=== PATIENT | male | born 2000 | race Hispanic/Latino ===

== ENCOUNTER 2023-10-30 13:54 | Inpatient (IN) | payer MEDICAID, OTHER ==
[~2023-10-30] VITALS: Ht 172.7 cm; Wt 149.1 kg
[2023-10-30 14:55] LABS: BASOPHILS # (AUTO) 0.04 K/uL (0.00-0.20); BASOPHILS % (AUTO) 0.4 % (0.0-5.0); HEMATOCRIT 45.8 % (42-54); IMMATURE GRANULOCYTE ABSOLUTE 0.07 K/uL (0-1); LYMPHOCYTES # (AUTO) 1.1 K/uL (1.0-4.8); MEAN CORPUSCULAR HGB CONC 33.8 g/dL (32.0-36.0); MEAN CORPUSCULAR VOLUME 73.9 fL (79-99); MONOCYTES # (AUTO) 0.5 K/uL (0.1-1.0); MONOCYTES % (AUTO) 4.6 % (3.0-13.0); NEUTROPHILS # (AUTO) 8.4 K/uL (1.8-7.7); NEUTROPHILS % (AUTO) 83.3 % (40.0-77.0); PLATELET COUNT (AUTO) 184 K/uL (130-400); RED CELL DISTRIBUTION WIDTH 13.1 % (11.0-15.5); WHITE BLOOD COUNT (AUTO) 10.1 K/uL (4.8-10.8)
[2023-10-30 15:08] LABS: RAPID GROUP A STREP negative (NEGATIVE)
[2023-10-30 15:10] LABS: SARS-CoV-2, RNA, NAAT NEGATIVE SARS CoV-2 (NEGATIVE)
[2023-10-30 15:14] LABS: INFLUENZA TYPE A Negative For Type A (NEGATIVE); INFLUENZA TYPE B Negative For Type B (NEGATIVE)
[2023-10-30] MEDS: 0.9%NACL 1000ML 2,052 ML IV ONE (15:15)
[2023-10-30 15:20] LABS: APPEARANCE,URINE CLEAR (CLEAR); BILIRUBIN,URINE 2 mg/dL (NEGATIVE); COLOR,URINE DARK-YELLOW (YELLOW); GLUCOSE, URINE (UA) 30 mg/dL (NEGATIVE); KETONES,URINE 10 mg/dL (NEGATIVE); LEUKOCYTE ESTERASE ,URINE NEGATIVE Leu/uL (NEGATIVE); NITRATE,URINE NEGATIVE (NEGATIVE); PH,URINE 6.5 (5.0-8.0); PROTEIN,URINE 100 mg/dL (NEGATIVE); UROBILINOGEN,URINE 12 mg/dL (0.2-1.0)
[2023-10-30 15:23] LABS: ALBUMIN 3.3 g/dL (3.5-5.0); BILIRUBIN,TOTAL 3.6 mg/dL (0.2-1.0); CREATININE 1.2 mg/dL (0.5-1.3); TOTAL PROTEIN, SERUM 8.6 g/dL (6.0-8.3)
[2023-10-30 15:26] LABS: POTASSIUM 2.9 mmol/L (3.5-5.1)
[2023-10-30 15:27] LABS: ADD UA MICROSCOPIC YES
[2023-10-30 15:41] LABS: BACTERIA,URINE RARE /HPF (None Seen); MUCUS,URINE RARE LPF (None Seen); SQUAMOUS EPITHELIAL CELL,UR RARE /HPF (0-2)
[2023-10-30] MEDS: POTASSIUM BICARB/CIT AC 25 MEQ TABLET.EFF PO ONE (16:13)
[2023-10-30] MEDS: CEFTRIAXONE 1G VIAL IVPB ONE (16:13)
[2023-10-30] MEDS ORDERED: POTASSIUM CHLORIDE 20MEQ/100ML 100 ML IV PRN ×2 (16:30)
[2023-10-30] MEDS ORDERED: MAGNESIUM 2GM PREMIX 50ML 50 ML IV PRN (16:30)
[2023-10-30] MEDS ORDERED: DEXTROSE 50%-WATER 50 ML DISP.SYRIN IV PRN (16:30)
[2023-10-30] MEDS ORDERED: POLYETHYLENE GLYCOL 3350 17 GM POWD.PACK PO PRN (16:30)
[2023-10-30] MEDS ORDERED: POTASSIUM CHLORIDE 10% ELIXIR 20 MEQ/15 ML UDCUP PO PRN (16:30)
[2023-10-30] MEDS ORDERED: DOCUSATE SODIUM 100 MG CAP PO PRN (16:30)
[2023-10-30] MEDS ORDERED: GLUCAGON 1MG KIT 1 MG ML IM PRN (16:30)
[2023-10-30] MEDS: INSULIN HUMULIN R 100 UNIT/ML 3ML SQ SCH (16:30)
[2023-10-30] MEDS: KETOROLAC 15MG/ML VIAL (15MG/ML) IV ONE (16:49)
[2023-10-30] MEDS: DOXYCYCLINE 100MG+NS 250ML 250 ML IV SCH (16:49)
[2023-10-30] MEDS: CEFTRIAXONE 2GM VIAL IVPB SCH (16:51)
[2023-10-30] MEDS ORDERED: HYDRALAZINE 20MG/ML VIAL IV PRN (17:00)
[2023-10-30] MEDS: 0.9%NACL 1000ML 1,000 ML IV SCH (17:40)
[2023-10-30 17:51] LABS: AMYLASE 90 U/L (25-115)
[2023-10-30] MEDS: SODIUM CHLORIDE 3% FOR INHALATION 4 ML/AMP VIAL.NEB IH ONE ×3 (17:58→23:12)
[2023-10-30] MEDS ORDERED: MORPHINE 5 MG/ML VIAL (5MG OR GREATER DOSE) IM PRN (18:00)
[2023-10-30] MEDS: FAMOTIDINE 20MG TAB PO SCH (20:43)
[2023-10-30 20:53] LABS: ACETAMINOPHEN < 1 mcg/mL (10-29); SALICYLATE < 2.8 mg/dL (2.8-20.0)
[2023-10-30 21:35] VITALS: O2SAT 98
[2023-10-30 21:49] VITALS: BP 120/56; PULSE 121; RESP 18
[2023-10-30 23:07] VITALS: BP 146/66; PULSE 121; RESP 18
[2023-10-30] MEDS: IBUPROFEN 600 MG TABLET PO PRN (23:08)
[2023-10-31] VITALS (9 sets, daily range): BP systolic 110–150; BP diastolic 50–77; PULSE 108–129; RESP 16–20; O2SAT 96–100
[2023-10-31 03:39] LABS: BASOPHILS # (AUTO) 0.02 K/uL (0.00-0.20); BASOPHILS % (AUTO) 0.2 % (0.0-5.0); EOSINOPHILS # (AUTO) 0.01 K/uL (0.00-0.70); EOSINOPHILS % (AUTO) 0.1 % (0.0-8.0); IMMATURE GRANULOCYTE ABSOLUTE 0.07 K/uL (0-1); LYMPHOCYTES # (AUTO) 1.4 K/uL (1.0-4.8); LYMPHOCYTES % (AUTO) 16.9 % (21.0-51.0); MEAN CORPUSCULAR HEMOGLOBIN 24.7 pg (27.0-33.0); MEAN CORPUSCULAR HGB CONC 33.5 g/dL (32.0-36.0); MEAN CORPUSCULAR VOLUME 73.7 fL (79-99); MONOCYTES # (AUTO) 0.7 K/uL (0.1-1.0); MONOCYTES % (AUTO) 7.7 % (3.0-13.0); NEUTROPHILS # (AUTO) 6.3 K/uL (1.8-7.7); NEUTROPHILS % (AUTO) 74.3 % (40.0-77.0); PLATELET COUNT (AUTO) 158 K/uL (130-400); RED BLOOD CELL COUNT(AUTO) 5.02 MIL/uL (4.50-6.20); RED CELL DISTRIBUTION WIDTH 13.2 % (11.0-15.5); WHITE BLOOD COUNT (AUTO) 8.5 K/uL (4.8-10.8)
[2023-10-31 03:48] LABS: CREATININE 1.1 mg/dL (0.5-1.3); POTASSIUM 3.3 mmol/L (3.5-5.1)
[2023-10-31 03:54] LABS: HEMOGLOBIN A1C 5.3 % (4.0-6.0)
[2023-10-31 04:01] LABS: ALBUMIN 2.6 g/dL (3.5-5.0); THYROID STIMULATING HORMONE 2.17 uIU/mL (0.36-3.74); TOTAL PROTEIN, SERUM 6.7 g/dL (6.0-8.3)
[2023-10-31] MEDS: KCL 20 MEQ ERTAB PO PRN (04:16)
[2023-10-31] MEDS: SODIUM CHLORIDE 3% FOR INHALATION 4 ML/AMP VIAL.NEB IH ONE (06:31)
[2023-10-31] MEDS: ENOXAPARIN SODIUM 80 MG/0.8 ML SQ SCH (08:55)
[2023-10-31] MEDS: LACTATED RINGERS 1000ML IV ONE (11:27)
[2023-11-01] VITALS (9 sets, daily range): BP systolic 118–140; BP diastolic 49–79; PULSE 80–118; RESP 18–22; TEMP 100.3; O2SAT 99
[2023-11-01 03:43] LABS: BASOPHILS # (AUTO) 0.03 K/uL (0.00-0.20); BASOPHILS % (AUTO) 0.5 % (0.0-5.0); EOSINOPHILS # (AUTO) 0.01 K/uL (0.00-0.70); EOSINOPHILS % (AUTO) 0.2 % (0.0-8.0); HEMATOCRIT 34.3 % (42-54); IMMATURE GRANULOCYTE ABSOLUTE 0.07 K/uL (0-1); LYMPHOCYTES # (AUTO) 1.6 K/uL (1.0-4.8); LYMPHOCYTES % (AUTO) 25.6 % (21.0-51.0); MEAN CORPUSCULAR HEMOGLOBIN 24.4 pg (27.0-33.0); MEAN CORPUSCULAR HGB CONC 33.2 g/dL (32.0-36.0); MEAN CORPUSCULAR VOLUME 73.4 fL (79-99); MONOCYTES # (AUTO) 0.6 K/uL (0.1-1.0); MONOCYTES % (AUTO) 8.8 % (3.0-13.0); NEUTROPHILS % (AUTO) 63.8 % (40.0-77.0); PLATELET COUNT (AUTO) 173 K/uL (130-400); RED BLOOD CELL COUNT(AUTO) 4.67 MIL/uL (4.50-6.20); RED CELL DISTRIBUTION WIDTH 13.4 % (11.0-15.5); WHITE BLOOD COUNT (AUTO) 6.2 K/uL (4.8-10.8)
[2023-11-01 04:43] LABS: BASOPHILS % (MANUAL) 1 % (0-2); LYMPHOCYTES % (MANUAL) 13 % (22-44); MAN.DIFF COMMENT-IMPRESSION MANUAL DIFFERENTIAL; MONOCYTES % (MANUAL) 8 % (2-9); SEGMENTED NEUTROPHILS % 78 % (40-70); TOTAL CELLS COUNTED 100; WBC MORPHOLOGY SLIDE REVIEWED
[2023-11-01 04:44] LABS: PLATELET MORPHOLOGY COMMENT ADEQUATE
[2023-11-01 05:14] LABS: CREATININE 0.9 mg/dL (0.5-1.3); POTASSIUM 3.4 mmol/L (3.5-5.1)
[2023-11-01 07:30] LABS: CHOLESTEROL 144 mg/dL (<200); HDL CHOLESTEROL 27 mg/dL (29-71); LDL DIRECT 95 mg/dL (0-99); TRIGLYCERIDES 200 mg/dL (30-200)
[2023-11-01] MEDS: LISINOPRIL 10 MG TABLET PO SCH (14:07)
[2023-11-01 17:08] LABS: AMPHET/METH SCREEN,URINE NEGATIVE (NEGATIVE); BARBITURATE SCREEN, URINE NEGATIVE (NEGATIVE); BENZODIAZEPINES SCREEN,URINE NEGATIVE (NEGATIVE); CANNABINOID SCREEN,URINE NEGATIVE (NEGATIVE); COCAINE SCREEN,URINE NEGATIVE (NEGATIVE); OPIATE SCREEN,URINE NEGATIVE (NEGATIVE); PHENCYCLIDINE SCREEN,URINE NEGATIVE (NEGATIVE)
[2023-11-02 03:10] VITALS: BP 145/71; PULSE 93; RESP 18
[2023-11-02 03:58] LABS: BASOPHILS # (AUTO) 0.05 K/uL (0.00-0.20); BASOPHILS % (AUTO) 0.7 % (0.0-5.0); EOSINOPHILS # (AUTO) 0.07 K/uL (0.00-0.70); HEMATOCRIT 37.3 % (42-54); IMMATURE GRANULOCYTE ABSOLUTE 0.06 K/uL (0-1); LYMPHOCYTES # (AUTO) 2.2 K/uL (1.0-4.8); LYMPHOCYTES % (AUTO) 31.1 % (21.0-51.0); MEAN CORPUSCULAR HEMOGLOBIN 25.1 pg (27.0-33.0); MEAN CORPUSCULAR HGB CONC 33.2 g/dL (32.0-36.0); MEAN CORPUSCULAR VOLUME 75.4 fL (79-99); MONOCYTES # (AUTO) 0.6 K/uL (0.1-1.0); MONOCYTES % (AUTO) 8.7 % (3.0-13.0); NEUTROPHILS # (AUTO) 4.1 K/uL (1.8-7.7); NEUTROPHILS % (AUTO) 57.6 % (40.0-77.0); PLATELET COUNT (AUTO) 212 K/uL (130-400); RED BLOOD CELL COUNT(AUTO) 4.95 MIL/uL (4.50-6.20); RED CELL DISTRIBUTION WIDTH 13.5 % (11.0-15.5); WHITE BLOOD COUNT (AUTO) 7.1 K/uL (4.8-10.8)
[2023-11-02 04:49] LABS: CREATININE 0.8 mg/dL (0.5-1.3); POTASSIUM 3.7 mmol/L (3.5-5.1)
[2023-11-02 05:19] LABS: EOSINOPHILS % (MANUAL) 1 % (1-6); LYMPHOCYTES % (MANUAL) 29 % (22-44); MAN.DIFF COMMENT-IMPRESSION MANUAL DIFFERENTIAL; MONOCYTES % (MANUAL) 9 % (2-9); SEGMENTED NEUTROPHILS % 61 % (40-70); TOTAL CELLS COUNTED 100
[2023-11-02 05:20] LABS: PLATELET MORPHOLOGY COMMENT ADEQUATE; WBC MORPHOLOGY SMUDGE CELLS 1+
[2023-11-02 05:42] VITALS: PULSE 94; RESP 19; O2SAT 97
[2023-11-02 07:00] VITALS: BP 134/80; PULSE 84; RESP 18
[2023-11-02 08:00] VITALS: O2SAT 99
[2023-11-02 10:22] LABS: THYROID STIMULATING HORMONE 2.43 uIU/mL (0.36-3.74)
[2023-11-02 11:00] VITALS: BP 144/83; PULSE 99; RESP 20
[2023-11-02] MEDS ORDERED: AMOX-426 PO (12:38)
[2023-11-03] MEDS ORDERED: AMLODIPINE 5 MG TAB PO SCH (09:00)
== END 2023-11-02 16:15 | disposition home or self-care (01) | DRG 871 ==
LOC: EDH 13:54 → EDHIP 13:55 → UNDOADMIN 16:14 → 2AH 21:16 → EDHIP 21:16
PROVIDERS: ADMIT Internal Medicine Pulmonary Disease; ATTEND Internal Medicine Pulmonary Disease
DX: A41.9 Sepsis, unspecified organism (principal); J18.9 Pneumonia, unspecified organism; K72.00 Acute and subacute hepatic failure without coma; N30.00 Acute cystitis without hematuria; M62.82 Rhabdomyolysis; E44.1 Mild protein-calorie malnutrition; Z68.42 Body mass index [BMI] 45.0-49.9, adult; Z20.822 Contact with and (suspected) exposure to COVID-19; R65.20 Severe sepsis without septic shock; E87.6 Hypokalemia; I10 Essential (primary) hypertension; R16.2 Hepatomegaly with splenomegaly, not elsewhere classified; R73.9 Hyperglycemia, unspecified; E66.01 Morbid (severe) obesity due to excess calories; E86.0 Dehydration; G47.33 Obstructive sleep apnea (adult) (pediatric); K76.0 Fatty (change of) liver, not elsewhere classified; Z79.899 Other long term (current) drug therapy
CPT/HCPCS: 36415; 71045; 71046; 74176; 76700; 80048; 80053; 80061; 80305; 81001; 82010; 82150; 82306; 82550; 82948; 83036; 83605; 83690; 83735; 83880; 84145; 84439; 84443; 84484; 85025; 87040; 87071; 87088; 87205; 87635; 87804; 87880; 94640; A4344; G0378; G0481; J0696; J1650; J1885; J3490; J7030

== ENCOUNTER 2023-12-09 16:33 | Emergency (ER) | payer OTHER ==
[~2023-12-09] VITALS: Ht 172.7 cm; Wt 104.3 kg
[~2023-12-09 16:33] MED LIST: AMOX-426 PO
[2023-12-09 17:14] LABS: BASOPHILS # (AUTO) 0.02 K/uL (0.00-0.20); BASOPHILS % (AUTO) 0.2 % (0.0-5.0); EOSINOPHILS # (AUTO) 0.05 K/uL (0.00-0.70); EOSINOPHILS % (AUTO) 0.4 % (0.0-8.0); HEMATOCRIT 45.4 % (42-54); IMMATURE GRANULOCYTE ABSOLUTE 0.03 K/uL (0-1); LYMPHOCYTES # (AUTO) 1.6 K/uL (1.0-4.8); LYMPHOCYTES % (AUTO) 13.3 % (21.0-51.0); MEAN CORPUSCULAR HEMOGLOBIN 25.3 pg (27.0-33.0); MEAN CORPUSCULAR HGB CONC 33.5 g/dL (32.0-36.0); MEAN CORPUSCULAR VOLUME 75.7 fL (79-99); MONOCYTES # (AUTO) 0.7 K/uL (0.1-1.0); MONOCYTES % (AUTO) 5.8 % (3.0-13.0); NEUTROPHILS # (AUTO) 9.5 K/uL (1.8-7.7); PLATELET COUNT (AUTO) 276 K/uL (130-400); RED CELL DISTRIBUTION WIDTH 13.6 % (11.0-15.5); WHITE BLOOD COUNT (AUTO) 11.8 K/uL (4.8-10.8)
[2023-12-09] MEDS: ONDANSETRON ODT 4MG TAB SL ONE (17:18)
[2023-12-09 17:23] LABS: POTASSIUM 3.4 mmol/L (3.5-5.1)
[2023-12-09 17:27] LABS: ALBUMIN 3.9 g/dL (3.5-5.0); BILIRUBIN,TOTAL 2.6 mg/dL (0.2-1.0)
[2023-12-09 17:53] LABS: APPEARANCE,URINE CLEAR (CLEAR); BILIRUBIN,URINE NEGATIVE (NEGATIVE); COLOR,URINE YELLOW (YELLOW); GLUCOSE, URINE (UA) NEGATIVE (NEGATIVE); KETONES,URINE NEGATIVE (NEGATIVE); LEUKOCYTE ESTERASE ,URINE NEGATIVE Leu/uL (NEGATIVE); NITRATE,URINE NEGATIVE (NEGATIVE); OCCULT BLOOD,URINE NEGATIVE (NEGATIVE); PROTEIN,URINE 30 mg/dL (NEGATIVE); UROBILINOGEN,URINE 0.2 mg/dL (0.2-1.0)
[2023-12-09 17:54] LABS: ADD UA MICROSCOPIC YES
[2023-12-09 17:57] LABS: MUCUS,URINE RARE LPF (None Seen); WBC,URINE 0-1 /HPF (0-1)
[2023-12-09] MEDS ORDERED: DICY20TA2 PO (18:50)
[2023-12-09] MEDS ORDERED: ONDA-243 PO (18:50)
[2023-12-09 19:32] VITALS: BP 131/80; PULSE 100; RESP 18; O2SAT 100
== END 2023-12-09 19:33 | disposition home or self-care (01) ==
LOC: EDH 16:33
DX: A08.4 Viral intestinal infection, unspecified (principal); K76.0 Fatty (change of) liver, not elsewhere classified; E80.6 Other disorders of bilirubin metabolism; R19.7 Diarrhea, unspecified; Z79.899 Other long term (current) drug therapy
CPT/HCPCS: 36415; 76705; 80053; 81001; 83605; 83690; 85025; 87040

== ENCOUNTER 2025-02-08 23:00 | Emergency (ER) | payer BC ==
[~2025-02-08] VITALS: Ht 180.3 cm; Wt 150.6 kg
[~2025-02-08 23:00] MED LIST changes: +DICY20TA2 PO; +ENAL-89 PO; +ONDA-243 PO
[2025-02-08 23:02] VITALS: TEMP 98.4
[2025-02-08] MEDS ORDERED: METH4TAB3 PO (23:09)
[2025-02-08] MEDS ORDERED: IBUP-2077 PO (23:09)
--- NOTE | 2025-02-08 23:10 | ERN ---
ED Note History of Present Illness Stated Complaint: C/O HEADACHE X 1 WK Chief Complaint: Headache Time Seen by MD: 23:03 Dictation: IS A 24-YEAR-OLD MALE COMING IN TODAY WITH COMPLAINTS OF A FRONTAL SINUS HEADACHE THAT IS ACHY AND INTERMITTENT OVER THE LAST WEEK. HE HAS HAD NO FEVER NO CHILLS NO NAUSEA VOMITING. NO LOSS OF TASTE OR SMELL. HE DENIES ANY HEAD TRAUMA. SAID HE TAKES TYLENOL AND THE PAIN GETS MUCH BETTER. HIS PRIMARY CARE DOCTOR IS USAMA WIN SAYS TO HIS HAS NOT Allergies: Coded Allergies: No Known Allergies (Unverified Allergy, Unknown, 10/30/23) Home Meds Active Scripts Enalapril Maleate (Enalapril Maleate) 10 Mg Tablet, 1 TAB PO DAILY for 30 Days, #30 TAB 0 Refills Prov:TOMMY FIELDS CAR LUBRICATOR 07/30/24 Ondansetron (Ondansetron Odt) 4 Mg Tab.rapdis, 4 MG PO Q6HPRN PRN for nausea, #16 TAB 0 Refills Prov:TOMMY FIELDS CAR LUBRICATOR 12/09/23 Dicyclomine HCl (Bentyl) 20 Mg Tab, 20 MG PO QIDP PRN for ABDOMINAL CRAMPS, #30 TAB Prov:TOMMY FIELDS CAR LUBRICATOR 12/09/23 Amoxicillin/Potassium Clav (Augmentin 500-125 Tablet) 500 Mg-125 Mg Tablet, 1 EACH PO DAILY for 7 Days, #14 TAB Prov:JUD LUCAS CAR LUBRICATOR 11/02/23 Past Medical History Past Medical History: Hypertension Additional Past Medical Hx: PNUEMONIA Surgical History: None Social History: Negative, Lives with family RN Note Reviewed/Agreed w/PFSH: Yes Review of System Dictation CONSTITUTIONAL: NEGATIVE EXCEPT FOR HPI HEAD/FACE: NEGATIVE EXCEPT FOR HPI FRONTAL SINUS HEADACHE EENT: NEGATIVE EXCEPT FOR HPI RESPIRATORY: NEGATIVE EXCEPT FOR HPI GASTROINTESTINAL/ABDOMINAL: NEGATIVE EXCEPT FOR HPI GENITOURINARY: NEGATIVE EXCEPT FOR HPI MUSCULOSKELETAL: NEGATIVE EXCEPT FOR HPI INTEGUMENTARY: NEGATIVE EXCEPT FOR HPI NEUROLOGICAL/PSYCH: NEGATIVE EXCEPT FOR HPI HEMATOLOGIC/LYMPHATIC: NEGATIVE EXCEPT FOR HPI ALL SYSTEMS NEGATIVE, EXCEPT NOTED ABOVE. 13 POINT REVIEW OF SYSTEMS ASSESSED AND ALL NEGATIVE EXCEPT FOR ABOVE. Initial Vital Sign VS Vital Signs Date Time Temp Pulse Resp B/P (MAP) Pulse Ox O2 Delivery O2 Flow Rate FiO2 02/08/25 23:02 98.4 86 20 157/75 99 Room Air Physical Exam Dictation VITAL SIGNS REVIEWED GENERAL APPEARANCE: ALERT, ORIENTED X 3, MILD ACUTE DISTRESS, WELL DEVELOPED, NOURISHED. HEAD AND FACE: NON-TRAUMATIC. NO SINUS TENDERNESS WITH PALPATION TO FRONTAL ETHMOID MAXILLARY EYES: PERRL, PINK CONJUNCTIVAS, EYELID NO TRAUMA, ANTERIOR CHAMBER WITH ARCUS SENILIS. EARS: PINNAS INTACT AND NO SIGNS OF TRAUMA OR ERYTHEMA EAR CANALS CLEAR AND NO DISCHARGE TM NO ERYTHEMA NOSE: NO DISCHARGE, NO BLEEDING. OROPHARYNX: MOUTH NORMAL, TONGUE PINK, PHARYNX CLEAR,NO ERYTHEMA, TONSILS NO EXUDATES, NO ABSCESSES NOTED, MUCOUS MEMBRANE MOIST NECK: SUPPLE, NON-TENDER, NO THYROMEGALY, NO MASSES, NO JVD, NO BRUITS BREAST:DEFERRED CHEST:NO TENDERNESS, NO CREPITUS, NO PARADOXICAL MOVEMENT, NO RETRACTIONS LUNGS:CLEAR, WELL-VENTILATED, SYMMETRIC, NO RALES, NO WHEEZING, NO RHONCHI, NO STRIDOR, GOOD BREATH SOUNDS BILATERALLY HEART: REGULAR RATE, REGULAR RHYTHM, NO MURMUR, NO GALLOPS VASCULAR: NO PERIPHERAL EDEMA, ABDOMEN: SOFT, POSITIVE BOWEL SOUNDS, NONDISTENDED, NO GUARDING, NONTENDER, NO REBOUND, NO MASSES NO HEPATOMEGALY, NO SPLENOMEGALY, NO ROUSE'S SIGN, NO HERNIAS. RECTAL: DEFERRED GENITAL: DEFERRED NEUROLOGICAL: NORMAL SPEECH, MOTOR FUNCTION INTACT, SENSORY FUNCTION INTACT NIH IS 0 MUSCULOSKELETAL: NECK NONTENDER, FULL RANGE OF MOTION, BACK NONTENDER, FULL RANGE OF MOTION, EXTREMITIES: NONTENDER, FULL RANGE OF MOTION SKIN: COLOR PINK, DRY, NO TURGOR, NO RASH, NO LACERATIONS, NO ABRASIONS, NO CONTUSIONS. LYMPHATIC: DEFERRED Results (Laboratory/Radiology) Labs Reviewed?: Yes ED Course ED Course Orders Procedure Category Date Status Time Ibuprofen 800 Mg Tab PHA 02/08/25 Verified (Motrin) 23:30 Dexamethasone 4mg/Ml PHA 02/08/25 Verified 1ml Vial (Dexametha 23:30 Vital Signs Date Time Temp Pulse Resp B/P (MAP) Pulse Ox O2 Delivery O2 Flow Rate FiO2 02/08/25 23:02 98.4 86 20 157/75 99 Room Air 2305/NO LABS OR IMAGING INDICATED. PATIENT IS AFEBRILE AND HEMODYNAMICALLY STABLE. HE WILL BE GIVEN DECADRON 8 MG WITH IBUPROFEN 800 MG P.O. REFERRED TO HIS PRIMARY CARE DOCTOR TOMORROW FOR CONTROL OF A SINUS HEADACHE. NO LABS OR IMAGING INDICATED Medical Decision Making MDM MEDICAL DECISION-MAKING BASED ON EMPIRIC TREATMENT FOR AN ACUTE SINUS HEADACHE. HEADACHE HAS NOT INTRACTABLE PATIENT GIVEN DECADRON AN 800 MG IBUPROFEN. HE WILL BE DISCHARGED HOME WITH MEDROL DOSEPAK AND IBUPROFEN TOLD SEE HIS PRIMARY CARE DOCTOR FOR MANAGEMENT DX & DISP Disposition: Discharge Departure Impression: Primary Impression: Sinus headache Condition: Stable Scripts Ibuprofen (Ibuprofen 800 mg Tab) 800 Mg Tab 800 MG PO Q8H PRN for fever or pain, #30 TAB 0 Refills Prov: TOMMY FIELDS NP 02/08/25 Methylprednisolone (Medrol) 4 Mg Tab.ds.pk 1 TAB PO AD for 6 Days, #21 TAB 0 Refills 6 on day 1 then reduce by one tablet daily until gone Prov: TOMMY FIELDS NP 02/08/25 Additional Instructions: FOLLOW-UP WITH PRIMARY CARE PROVIDER IN 1 TO 2 DAYS. TAKE MEDICATIONS DIRECTED HERE IN THE EMERGENCY ROOM. OKAY TO CONTINUE HOME MEDICATIONS UNLESS OTHERWISE DISCUSSED DURING YOUR VISIT IN THE EMERGENCY ROOM TODAY. RETURN TO YOUR NEAREST EMERGENCY ROOM IF SYMPTOMS WORSEN OR IF THERE IS NO IMPROVEMENT. CALL 911 IF YOU NEED IMMEDIATE ASSISTANCE. TAKE TYLENOL OR MOTRIN [id number] NEEDED AND IF NO CONTRAINDICATIONS ARE PRESENT. INCREASE ORAL HYDRATION. A WOUND CULTURE OR URINE CULTURE WAS ORDERED HERE IN THE EMERGENCY ROOM DEPARTMENT PLEASE FOLLOW-UP WITH PRIMARY CARE PROVIDER AND ADVISE THEM TO GET REPEAT PORTS FROM OUR FACILITY. IF YOU HAD ANY VIANNEY WRAP/SPLINTS THAT WERE APPLIED HERE, PLEASE DO NOT REMOVE THEM UNTIL YOU SEE YOUR PRIMARY CARE OR SPECIALTY. TAKE MEDROL DOSEPAK DIRECTED UNTIL GONE. TAKE IBUPROFEN EVERY 6-8 HOURS NEEDED FOR PAIN WITH FOOD. INCREASE YOUR WATER INTAKE. SEE YOUR PRIMARY CARE DOCTOR AT [facility] FOR MANAGEMENT OF YOUR SINUS HEADACHE. Referrals: SELF,REFERRAL (PCP) Time of Disposition: 23:08 I have reviewed the case, and I agree with, Diagnosis and Plan TOMMY FIELDS NP Feb 08, 2025 23:10
[2025-02-08 23:36] VITALS: BP 156/92; PULSE 71; RESP 13; O2SAT 96
== END 2025-02-08 23:38 | disposition home or self-care (01) ==
LOC: EDH 23:00
DX: R51.9 Headache, unspecified (principal); I10 Essential (primary) hypertension; Z79.899 Other long term (current) drug therapy
CPT/HCPCS: 99284; 96372; J1100 ×2